=== PATIENT | male | born 1950 | race Native Hawaiian/Other Pacific Islander ===

== ENCOUNTER 2021-08-27 10:52 | Inpatient (IN) | payer OTHER ==
[~2021-08-27] VITALS: Ht 190.5 cm; Wt 106.2 kg
--- NOTE | 2021-08-27 12:08 | NUR ---
PATIENT BROUGHT VIA STRETCHER FROM [facility]. PATIENT TAKEN TO ROOM 1114. PATIENT INSTRUCTED TO GET FROM THE STRETCHER TO THE BED. PATIENT WAS ABLE TO SCOOT OVER ONTO THE BED AND USE HIS UPPER EXTREMITIES AND RIGHT LEG TO LIFT UP IN THE BED. UPPER GUARD RAILS USED TO MOVE UP IN THE BED. PATIENT ASSESSED AND NO VISIBLE SORES OR WOUNDS NOTED ON HIS BOTTOM. CRE COLLETED AT THIS TIME. ADMISSION ASSESSMENT WAS COMPLETED. PATIENT IS AOX3 AND IS PLEASENT. PATIENT IS ABLE TO MAKE ALL NEEDS KNOWN. PATIENT IS NOTED WITH AN EYAD WRAP TO LEFT BKA. EYAD REMOVED AND NOTED WAS JOVANNI AND 4X4 WITH SEROSANGUINOUS FLUID NOTED. 4X4 REMOVED CAREFULLY WITH PATIENT TOLERATING WELL. PATIENT HAS 26 NATALIYA THAT ARE INTACT INCLUDING 9 SUTURES WELL. WOUND IS INTACT. AREA REWRAPPED WITH 4X4'S AND KNLIND AND THEN SECURED WITH EYAD. PATIENT TOLERATED WELL. PATIENT ORENTED TO ROOM AND CALL LIGHTS.
[2021-08-27 17:30] VITALS: BP 122/52; TEMP 98.2; Ht 190.5 cm; Wt 106.2 kg
[2021-08-27 20:52] VITALS: BP 132/55; TEMP 97.6
--- NOTE | 2021-08-28 01:38 | NUR ---
PT IS RESTING WITH EYES CLOSED. PT WITH BKA TO HIS LEFT LOWER EXT.
--- NOTE | 2021-08-28 05:41 | NUR ---
[facility] Bed patient nad is 6'3" with a left BKA and is on a 2 gm Na diet plan and is a 71yoM and has diagnosis of weakness, Fe deficiency anemia, HTN, neuropathy, osteomyelitis, non-healing plantar ulcer, and at [facility] had severe sepsis secondary to UTI and diarrhea and left foot infection that resulted in a left BKA. OT and PT working closely with the patient per MD Notes. AIBW = 184 +/-10% (166 to 202 lbs.) and kcal needs for IBW x 25 = 2100, x 30 = 2500, x 35 = 3000, and x 40 = 3300 kcal/day and protein needs x 1.0 to 1.5 = 71 to 134 grams per dya and needs the upper protein level to help with wound healing and fluids x 25 to 40 = 2100 to 3300 ml/cc per day. 154% of IBW. RD available as needed. RD Recommendations: 1-Monitor Labs 2-Make sure hydrated 3-Add Vitamin C 500 gm BID 4-Add ZNSO4 220 mg per dya and d/c in 14 days 5-Add Protein 6-[place] food preferences and so note on the diet card 7-May want to add FESO4 or foods high in Fe 8-If eating <75% of meals off a supplement 9-Add a MVI
--- NOTE | 2021-08-28 13:00 | NUR ---
PATIENT LINENS CHANGED AND PATIENT CLEANED UP FROM BOWEL MOVEMENT. PATIENT TOLERATES ROLLING FROM SIDE TO SIDE AND CAN PULL SELF UP IN BED
[2021-08-28 20:06] VITALS: BP 130/52; TEMP 97.5
--- NOTE | 2021-08-28 23:57 | NUR ---
PT IN BED RESTING QITELY EYES CLOSED RESPPIRATIONS EVEN AND UNLABORED. PT ALERT TO VERBAL STIMULATION. PT VOICES NO COMPLAINTS OF PAIN OR DISCOMFORT AT PRESENT. PT ACCEPTED HS MEDICATION WITHOUT COMPLICATION. PT HAS URINAL AT BEDSIDE. PT HAS LEFT BKA. NO S/SX OF INFECTION NOTED. +1 SWELLING NOTED IN PT LOWER EXTEMITIES. PT SKIN NOTED TO BE DRY. PSORIASIS NOTED. NO ACUTE DISTRESS NOTED CALL LIGTH WITH IN REACH
--- NOTE | 2021-08-29 01:17 | NUR ---
PT COMPLAINT OF PAIN IN LOWER EXTREMITY OF LEFT LEG. PT HAS HAD RECENT BKA IN LEFT LEG. PT VOICED PAIN 04/06. PRN MEDICATION ADMINISTED.
--- NOTE | 2021-08-29 01:47 | NUR ---
PT VOICED PRN PAIN MEDICATION "HELPED " WITH THE PAIN.
[2021-08-29 08:34] VITALS: BP 126/52; TEMP 98.5
[2021-08-29 19:52] VITALS: BP 120/57; TEMP 98.2
--- NOTE | 2021-08-30 01:35 | NUR ---
PT IN BED RESTING QUITELY. RESPIRATIN EVEN AND UNLABORED. PT ABLE TO MAKE NEEDS KNOWN. PT VOICE PAIN 8/10 IN LOWER LEFT EXTREMITY. PRN PAIN MEDICATION ADMINISTERE. PT ACCEPT HESTER MEDICATION. SWELLING NOTED IN [place]. LOWER EXT. PT EDUCATED TO USE ALL LIGHT FOR ASSISTANCE WITH TRANSFERING. PT BKA TO LEFT LEG NO S/SX IF INFECTION NOTED. NO ACUTE DISTRESS. CALL LIGHT IN REACH.
[2021-08-30 08:20] VITALS: BP 145/62; TEMP 97.6
--- NOTE | 2021-08-30 19:37 | NUR ---
ABOUT 1600, DRESSING CHANGE TO STUMP. CLEANED WITH NORMAL SALINE, COVERED WITH 4X4, WRAPPED IN JOVANNI AND EYAD BANDAGE. 20G PERIPHERAL IV INITIATED TO LEFT WRIST ATTEMPT X1. PATIENT TOLERATED WELL. PATIENT SL.
[2021-08-30 20:00] VITALS: BP 131/59; TEMP 98
[2021-08-31 05:55] LABS: POTASSIUM 5.9 mmol/L (3.6-5.2)
--- NOTE | 2021-08-31 06:53 | NUR ---
PT ALERT RESTING IN BED AT THIS TIME. RESTED MOST OF THE NIGHT. PRN PAIN MED GIVEN WITH RELIEF NOTED. NO S/S OF DISTRESS.
[2021-08-31 08:00] VITALS: BP 123/52; TEMP 98.4
--- NOTE | 2021-08-31 13:49 | NUR ---
PT LAYING LOW FOWLERS IN BED. REQUESTED PAIN MED BEFORE PHYSICAL THERAPY, ADJUSTMENTS MADE. LEFT BKA BANDAGE INTACT AND DRY. EDEMA NOTED TO RIGHT LE. PO LASIX ON HOLD AND ORDER FOR LASIX 40 MG IV ADMINISTERED. NAD NOTED. ALERT AND ORIENTED. EDEMA NOTED TO SCROTUM. VOIDS IN URINAL WITH NO ASSISTANCE. ONE PERSON ASSIST WITH CHANGING OR CLEANING PT AFTER BOWEL MOVEMENT. PT ABLE TO TURN HIMSELF. ALERT AND ORIENTED. ABLE TO FEED HIMSELF AND COMPLETE SIMPLE TASK ON HIS OWN. CONTINUE TO MONITOR.
--- NOTE | 2021-08-31 15:55 | NUR ---
PER HCP(GURPREET) INSERT ZIMMERMAN CATHETER R/T PT THIRD SPACING. SCROTUM SWOLLEN. INSERTED 16 CITIZEN OF [place] CATHETER. LESS THAN 50ML/URINE R/T UPON INSERTION. PT TOLERATED WELL. PARTICIPATED WITH PT/OT TODAY. RODE BICYCLE AND WAS ABLE TO STAND UP ON THE SIDE OF BED USING WALKER FOR A FEW MINUTES TODAY. PAIN MED ADMINISTERED PRIOR TO PT/OT. NAD NOTED. CONTINUE TO MONITOR.
--- NOTE | 2021-08-31 18:15 | NUR ---
AT BEDSIDE. BROUGHT PT FOOD FROM OUTSIDE OF FACILITY. DENIES ANY PAIN/DISCOMFORT. NAD NOTED. ZIMMERMAN INTACT AND PT DENIES ANY DISCOMFORT. NATALIYA AND SUTURES INTACT TO LEFT BKA, DRESSING INTACT AND DRY, NO DRAINAGE NOTED TO SITE. IV SITE TO LFA INTACT AND SALINE LOCK, WITH NO S/S OF INFILTRATION NOTED. ENCOURAGED PT TO USE BEDPAN WHEN NEEDED FOR BM. PT STATED "WHEN I USE THAT,IT SEEMS LIKE I LOSE THE URGE TO HAVE A BM." HAS HAD BM X2, LOOSE, ANNA COLORED STOOLS. CONTINUE TO MONITOR.
[2021-08-31 20:00] VITALS: BP 102/50; TEMP 98.1
--- NOTE | 2021-08-31 20:58 | NUR ---
PT AWAKE, ALERT, AND ORIENTED SITTING UP IN BED WITH NO ACUTE DISTRESS NOTED, TALKATIVE WITH STAFF ALONG WITH WHO IS AT BEDSIDE. RESP RATE NONLABORED, ON ROOM AIR, IV LOCK 20G INTACT TO L WRIST AREA, ZIMMERMAN 16F PATENT DRAINING TO BEDSIDE WITH LIGHT YELLOW URINE NOTED IN BAG, R FOOT AND L BKA ELEVATED ON PILLOWS. SEE SHIFT ASSESSMENT FOR MORE INFO. PT TOOK MEDICATIONS WHOLE, HELD MED CUP AND DRIP PER SELF WITH NO PROBLEMS. WILL PULL SELF UP IN BED, WILL MONITOR, RAILS UP, BED IN LOW POSITION, CALL LIGHT IN REACH, ENCOURAGED TO CALL NEEDED.
--- NOTE | 2021-08-31 23:20 | NUR ---
PT AWAKE WITH NO ACUTE DISTRESS NOTED. C/O "DULL" PAIN TO L BKA THAT IS A "5 OR 6" ON SCALE, GAVE NORCO 5/325MG PO PRN FOR PAIN, WILL MONITOR CLOSELY, BROUGHT PT JUICE TO DRINK AND SOME CRACKERS PER REQUEST. PT DID NOT NEED HELP WITH HIS SNACK ONLY SLIGHT SET UP HELP WITH OPENING JUICE. RAILS UP, BED IN LOW POSITION, CALL LIGHT IN REACH, ENCOURAGED TO CALL NEEDED.
--- NOTE | 2021-08-31 23:55 | NUR ---
PT STATES HIS PAIN HAS STARTED TO DECREASE SOME SINCE ADX OF PRN MEDICATIONBUT HE STILL HAS SMALL AMOUNT OF PAIN. NO REACTIONS NOTED TO PRN MEDICATION. PT WATCHING TV, WILL MONITOR, RAILS UP, BED IN LOW POSITION, CALL LIGHT IN REACH, ENCOURAGED TO CALL NEEDED. L BKA AND R FOOT ELEVATED.
--- NOTE | 2021-09-01 03:08 | NUR ---
PT AWAKE, ALERT, AND ORIENTED SITTING UP IN BED. NO S/S OF ACUTE DISTRESS NOTED, R LEG/FOOT ELEVATED ON PILLOW DUE TO PITTING EDEMA STILL NOTED, L BKA(STUMP) ELEVATED ON FOLDED BLANKET. IV LOCK INTACT. C/O "SHOOTING" PAIN TO L MARLENA THAT HE STATES WOKE HIM UP, RATES PAIN A "7" ON SCALE OF O-10. GAVE NORCO 5/325MG PO PRN FOR PAIN. WILL MONITOR CLOSELY, RAILS UP X3, BED IN LOW POSTIION, CALL LIGHT IN REACH, ENCOURAGED TO CALL NEEDED, PT ACKNOWLEDGES UNDERSTANDING. ZIMMERMAN CATH PATENT DRAINING TO BEDSIDE.
--- NOTE | 2021-09-01 03:45 | NUR ---
RESTING WITH EYES CLOSED AND LIGHT SNORING NOTED, NO S/S OF PAIN OR DISTRESS NOTED, NO REACTIONS NOTED TO PRN PAIN MEDICATION, WILL MONITOR, IV LOCK INTACT TO L WRIST AREA, ZIMMERMAN PATENT DRAINING TO BEDSIDE, RAILS UP, BED IN LOW POSITION. R FOOT AND L BKA ELEVATED ON PILLOWS.
[2021-09-01 06:08] LABS: POTASSIUM 6.1 mmol/L (3.6-5.2)
--- NOTE | 2021-09-01 07:12 | NUR ---
PT C/O PAIN THAT COMES AND GOES TO L BKA, GAVE NORCO 5/325MG PO PRN PER PT REQUEST FOR PAIN. NO ACUTE DISTRESS NOTED, PT TALKATIVE WITH STAFF, IV LOCK INTACT, ZIMMERMAN PATENT, WILL MONITOR CLOSELY, RAILS UP, BED IN LOW POSITION, ENCOURAGED TO CALL NEEDED PT ACKNOWLEDGES UNDERSTANDING.
--- NOTE | 2021-09-01 07:13 | NUR ---
PT RATED PAIN TO L BKA A "7" AND STATES PAIN IS "PRETTY SHARP".
--- NOTE | 2021-09-01 07:30 | NUR ---
POTASSIUM LEVEL 6.1 TODAY AND WAS 5.9 YESTERDAY. REPORTED LABS TO DR. BANERJEE. NEW TELEPHONE ORDER FOR KAYEXALATE 30 GRAMS PO X 1 DOSE NOW R&V.
[2021-09-01 15:58] LABS: POTASSIUM 6.3 mmol/L (3.6-5.2)
[2021-09-01 20:00] VITALS: BP 104/51; TEMP 97.4
--- NOTE | 2021-09-01 20:26 | NUR ---
FULL LINEN CHANGE DONE AT THIS TIME. PT ALSO SPILT APPLE JUICE ON SHIRT AND ON LINENS. GOT PT CLEANED UP. PM MED GIVEN AT THIS TIME . PT TOLERATED WELL. DRESSING INTACT TO L BKA. PT DOES NOT COMPLAIN OF PAIN AT THIS TIME. PT WAS THANKFUL WE CHANGED LINENS AND GAVE PT A NEW CLEAN GOWN. PT ABLE TO HELP AND ASSIST IN TRANSFERRING AND MANEUAVERING FROM SIDE TO SIDE FOR LINEN CHANGE. PT PLACED IN A LOW FOWLERS POSITION AFTER BED CHANGE WITH SIDE RAILS UP TIMES TWO WITH BED IN LOWEST POSITION ORIENTED TO CALL LIGHT.
[2021-09-02 05:22] LABS: POTASSIUM 6.3 mmol/L (3.6-5.2)
--- NOTE | 2021-09-02 06:46 | NUR ---
ER PHYSICIAN NOTIFIED OF POTASSIUM LEVEL OF 6.3- DOCTOR ORDERED A EKG AND A REPEAT K LEVEL. NO OTHER ORDERS GIVEN AT THIS TIME EKG RESULTS PROVIDED TO PHYSICIAN- NO NEW ORDERS- WAITING ON POTASSIUM LEVEL TO COME BACK PER DOCTORS ORDER
[2021-09-02 08:00] VITALS: BP 100/60; TEMP 97.9
--- NOTE | 2021-09-02 17:32 | NUR ---
LISIONOPRIL D/C'D PER DR. ULRICH. DUE TO MEDICATION POSSIBLY INCRESING PT'S K+ AND PT HAVING LOW BP.
[2021-09-02 20:00] VITALS: BP 77/39; TEMP 97.3
--- NOTE | 2021-09-02 20:59 | NUR ---
PT IS LAYING IN LOW FOWLERS POSITION IN THE BED. PT STATES THAT HE HAS PAIN IN THE STUMP OF HIS LEG THAT HE RATES AT AN 8 ON A NUMERIC SCALE OF 0-10. PT WAS GIVEN HIS NIGHTLY DOSE OF GABAPENTIN. PT TOOK HIS NIGHTLY MEDICATIONS WITHOUT ANY DIFFICULTY AND DENIES ANY OTHER NEEDS. NO DISTRESS IS NOTED AT THIS TIME. CALL LIGHT IS LEFT WITHIN REACH ALONG WITH OTHER PERSONAL BELONGINGS. WILL CONTINE TO MONITOR.
[2021-09-03 04:51] LABS: POTASSIUM 5.6 mmol/L (3.6-5.2)
--- NOTE | 2021-09-03 04:52 | NUR ---
Swing Bed patient and I went by to visit and he was asleep, RD available as needed.
--- NOTE | 2021-09-03 06:27 | NUR ---
PT IS ASLEEP AND SNORING. ALL OF THE LIGHTS ARE OUT IN THE ROOM. SMALL ORDER CUTTER WILL LEAVE PT TO LET HIM REST.
[2021-09-03 08:00] VITALS: BP 124/58; TEMP 98.7
--- NOTE | 2021-09-03 08:14 | NUR ---
PT LAYING IN BED RESTING WITH EYES CLOSED. EASILY AWAKENED BY SPEAKING TO PT. HE DENIES PAIN OR DISCOMFORT. STATES HE RESTED WELL LAST NIGHT. PT DID REQUEST HIS PAIN MEDICATION TO BE GIVEN WITH HIS MORNING MEDICATIONS. WILL CONTINUE TO MONITOR.
--- NOTE | 2021-09-03 09:01 | NUR ---
STARTED NORMAL SALINE IV @75ML/HR.
[2021-09-03] MEDS ORDERED: FUROSEMIDE40 MG PO (13:33)
[2021-09-03] MEDS ORDERED: LISINOPRIL PO (13:35)
[2021-09-03] MEDS ORDERED: METOPROLOL25 M1 PO (13:38)
[2021-09-03] MEDS ORDERED: HYDROCODONE BIT1 TA1 PO (13:39)
[2021-09-03] MEDS ORDERED: SPIRONOLACT50 MG PO (13:39)
[2021-09-03] MEDS ORDERED: NIFE30TA PO (13:41)
[2021-09-03] MEDS ORDERED: CHLORTHALID50 MG PO (13:42)
[2021-09-03] MEDS ORDERED: DOCU100C10 PO (13:42)
[2021-09-03] MEDS ORDERED: ASPIR-LOW81 MG PO (13:43)
[2021-09-03] MEDS ORDERED: GABA100C2 PO (13:44)
--- NOTE | 2021-09-03 14:42 | NUR ---
PT PARTICIPATING IN PHYSICAL THERAPY.
--- NOTE | 2021-09-03 16:05 | NUR ---
PT LAYING BED EATING SOME BRAN CRACKERS AND REQUESTED APPLE JUICE. APPLE JUICE BROUGHT TO PATIENT AND PLACED IN HIS BEDSIDE CUP PER PT REQUEST.
[2021-09-03 16:10] LABS: PLATELET COUNT 191 K/uL (142-355)
--- NOTE | 2021-09-03 16:59 | NUR ---
NEW ORDER FOR KYEXALATE FOR PT'D ELEVATED K+. PT TOOK MEDICAITONS AND TOLERATED WELL.
--- NOTE | 2021-09-03 17:38 | NUR ---
PT C/O PAIN IN HIS LEGS. PRN NORCO GIVEN. NO OTHER C/O VOICED. PT ENCOURGAED TO USE CALL LIGHT IF HE HAS ANY NEEDS. CALL LIGHT IS WITH IN REACH.
[2021-09-04 05:04] LABS: POTASSIUM 5.2 mmol/L (3.6-5.2)
--- NOTE | 2021-09-04 05:36 | NUR ---
PT IN BED RESTING QUITELY. PT VOICED BEING SOB AFTER REPOSITION AND SETTING UP IN THE BED. PT DENIES PAIN AT PRESENT. PT ACCEPTED HS MEDICATION WITHOUT COMPLICATION. PT REQUESTED PAIN MEDICATION THORUGHT THE SHIFT. SWELLING NOTED IN LOWER EXTRIMITES. PT RESPIRATION EVEN AND UNLABORED. PT LUNGS CTA. NO ACUTE DISTRESS NOTED
[2021-09-04 07:58] VITALS: BP 107/55; TEMP 97.7
[2021-09-04 20:00] VITALS: BP 110/50; TEMP 98.7
--- NOTE | 2021-09-04 22:59 | NUR ---
PT IN BED AWAKE AND ALERT WITH EYES OPEN. PT ABLE TO MAKE NEEDS KNOWN. PATIENT VOICE COMPLAINTS OF PAIN RELATED TO LT. BKA. PRN PAIN MEDICATION ADMINISTERED. PT RESIPRATION EVEN AND UNLABORED. PT HAS SWELLING NOTE TO LOWER TORSO BILATERALY. 16FR ZIMMERMNA INTACT AND PATENT. CLEAR ABILIO URINE NOTED IN COLLECTION BAG. PT INCONTENT OF BOWEL AND BLADDER. REQUIRES ASSISTANCE WITH TRANSTERING AND ADLS. NO ACUTE DISTRESS NOTED.
--- NOTE | 2021-09-05 09:15 | NUR ---
IN TO GIVE PT AM MEDS. PT GIVEN PRN PAIN MED FOR PAIN WITH LLE. PT RATES PAIN 04/06. DISCUSSED WITH PT HIS SWELLING AND WHAT HAD BEEN DISCUSSED WITH HIM PREVIOUSLY. PT STATES "WELL ONE NURSE MENTIONED I MIGHT NEED DIALYSIS AND I DON'T WANT TO DO THAT FOR THE REST OF MY LIFE" EDUCATED PT THAT DIALYSIS IS NOT ALWAYS PERMANENT. PT REQUESTS TO SPEAK WITH DR. BANERJEE TO GET A BETTER UNDERSTANDING AND KNOW WHAT HER PLANS ARE. NOTIFIED.
--- NOTE | 2021-09-05 13:00 | NUR ---
SPOKE WITH PT'S . UPDATE GIVEN.
--- NOTE | 2021-09-05 15:30 | NUR ---
DR. BANERJEE AT BS
--- NOTE | 2021-09-05 16:09 | NUR ---
DRESSING TO LT STUMP CHANGED AT THIS TIME. NO REDNESS OR SWELLING NOTED. PT TOLERATED WELL WITHOUT DIFFICULTY.
[2021-09-05 20:00] VITALS: BP 113/61; TEMP 97.8
--- NOTE | 2021-09-05 22:17 | NUR ---
1950: PT REQUESTED PAIN MED. NORCO 7.5/325MG GIVEN PO. PT ALSO REQUESTED GATORAIDE. PT HAS DRESSING INTACT TO LEFT STUMP WITH EDEMA NOTED TO THIGH. PT HAS EDEMA TO RIGHT LEG AND FOOT, AND TO BOTH SIDES OF TRUNK. ABD DISTENDED AND FIRM. PT ALSO ASKED WHEN WAS THE NEXT TIME HE COULD GET ANOTHER PAIN PILL.INSTRUCTED PT THAT HE WOULD HAVE TO ASK FOR IT.
--- NOTE | 2021-09-06 02:09 | NUR ---
0054: PT REQUESTED PAIN MED FOR LEVEL8 PAIN IN LEFT STUMP. NORCO 7.5/325MG GIVEN PO. PT REQUESTED 3 APPLE JUICES ALSO.
--- NOTE | 2021-09-06 02:12 | NUR ---
0130: PT STATED PAIN WAS NOW AT LEVEL 6. INSTUCTED PT THAT PILLS TAKE LONGER TO DISSOLVE BUT LAST LONGER. PT VERBALIZES UNDERSTANDING.
--- NOTE | 2021-09-06 05:03 | NUR ---
PT REQUESTED PAIN MED FOR LEFT STUMP PAIN. PAIN LEVEL IS A 7 ON PAIN SCALE. NORCO 7.5/325MG GIVEN PO.
[2021-09-06 08:00] VITALS: BP 126/54; TEMP 98
--- NOTE | 2021-09-06 09:00 | NUR ---
PATIENT HAS COMPLAINTS OF PAIN AT THIS TIME. PRN PAIN MED GIVEN AT THIS TIME. PT FREE OF OTHER COMPLAINTS AT THIS TIME.
--- NOTE | 2021-09-06 11:30 | NUR ---
PATIENT REQUESTING TO GO BACK TO BED. THERAPY CALLED AND ASSIST X3 BACK TO BED. PATIENT DID NOT WANT TO USE WALKER. LIFT USED TO TRANSFER PATIENT BACK TO BED.
--- NOTE | 2021-09-06 14:52 | NUR ---
Patient has a follow up appointment with Dr. Tello Meehan orthopedic surgeon [phone] on 09/08/21 @10:45am. His Fatuma will take him to the appointment. He will need therapy to assist him with transfer. Per Lali at Dr. Meehan's office they have someone who can assist him on their end in getting in and out of the vehicle. Therapy in the room and aware they need to assist patient with transfer.
--- NOTE | 2021-09-06 16:10 | NUR ---
PATIENT MOVED FROM RM 1114 TO 1103 PER RK.
[2021-09-06 19:50] VITALS: BP 92/45; TEMP 97.4
--- NOTE | 2021-09-07 00:46 | NUR ---
PT STATES THAT HE HAS BEEN DREAMING. STATES THAT HIS DREAMS FEEL REAL. ORIENTED PT THAT HE WAS IN [facility] FOR THERAPY.
--- NOTE | 2021-09-07 03:40 | NUR ---
ROUND MADE OFTEN. PT IS LESS CONFUSED PRESENTLY. PT STATED THAT HE THOUGHT IT WAS THE MEDICATION AND THE CHANGE OF ROOMS. INSTRUCTED PT TO CALL FOR ANY ASSISTANCE. PT VOICED UNDERSTANDIN OF THESE INSTRUCTIONS.
--- NOTE | 2021-09-07 07:30 | NUR ---
PT REPORTED SEEING THINGS THAT WAS NOT THERE. HE STATES THAT "I KNOW ITS GOT TO BE A DREAM." HE DISPLAYS INCREASED CONFUSION WHEN TRYING TO TALK IN A CONVERSATION.
--- NOTE | 2021-09-07 11:08 | NUR ---
THERAPY REPORTS PT HAVING HALLUCINATIONS. THERAPY STATES THAT PT SAYS THAT HIS BED IS FLOATING IN THE AIR BUT HE KNOWS ITS NOT FLOATING IN THE AIR. HE ALSO REPORTED TO THERAPY THAT THERE WAS SOMEONE IN HIS CLOSET BUT HE KNOWS THAT THERE IS NO ONE IN THER BUT HE SEEN THEM GO IN THE CLOSET. HE ALSO TOLD THERAPT THAT HE DID NOT WANT TO DO THERAPY TODAY BECAUSE SOMETHING ISN'T RIGHT.
--- NOTE | 2021-09-07 13:30 | NUR ---
PT IN CHAIR AT BEDSIDE. HE IS NOTIBLY LESS CONFUSED THAN PRIOR ASSESSMENT.
--- NOTE | 2021-09-07 14:45 | NUR ---
NEW DRY NON STICK DRESSING APPLIED TO PTS LEFT EXTREMITY SURGICAL WOUND. AREA HAS NO EDEMA, NO EYRTHEMA, AND HAD NO DRAINAGE. SUTURES AND NATALIYA ARE INTACH. PT TOLERATED DRESSING CHANGE WITH NO PAIN IR COMPLAINTS OF DISCOMFORT.
[2021-09-07 20:03] VITALS: BP 107/48; TEMP 97.7
--- NOTE | 2021-09-08 06:09 | NUR ---
PATIENT HAS RESTED THIS PM. PT HAS BEEN ALERT AND ORIENTED THIS SHIFT. PT HAS REQUIRED NO PAIN MEDICATION THIS SHIFT. BEDSIDE TABLE IN EASY REACH. PT WAS SERVED [facility] . PT HAS APPOINTMENT WITH DR. DOW. TRANSPORTATION HAS BEEN ARRANGED.
--- NOTE | 2021-09-08 06:15 | NUR ---
PT HAS RESTED THIS PM WITH NO COMPLAINTS VOICED.
--- NOTE | 2021-09-08 07:40 | NUR ---
PT CALLS TO NURSES STATION TO REPORT HIS PHONE NOT WORKING. INTO CHECK ON PT. CHECKED PT'S PHONE IT'S NOT WORKING. NOTIFIED IT. INFORMED PT WHILE HE IS GONE TO HIS DR. COREY. WE WILL HAVE HIS PHONE CHECKED OUT. PT VERBALIZES UNDERSTANDING. PT REQUESTED WE CALL HIS AND LET HER KNOW TO COME ON. SPOKE WITH PT'S AND INFORMED HER THAT PT WOULD LIKE FOR HER TO COME ON NOW, MRS. MCPHERSON STATES "WE ARE ON OUR WAY NOW" NOTIFIED PT HIS IS ON THE WAY. PT NOTED TO BE ALERT AND ORIENTED X4.
--- NOTE | 2021-09-08 08:40 | NUR ---
IN TO ASSIST WITH GETTING PT DRESSING AND AM MEDS. PT SCROTUM AND PENIS NOTED TO BE EDEMATOUS. RLE NOTED TO HAVE 3+EDEMA. PT ALSO NOTED TO HAVE EDEMA TO BILAT HIPS AND WAIST 3+. PT WIPED OFF AND NEW CATH SECURE PLACED TO RT THIGH. 400CC CLEAR YELLOW URINE EMPTIED FROM ZIMMERMAN BAG.PT DRESSED IN CLOTHES PROVIDED BY HIS . PT TOLERATED PO MEDS WELL WITHOUT DIFFICULTY. PT NOTED TO HAVE 22G SL TO LFA. FLUSHED WITH 5CC NS, LASIX 40MG IV SLOW PUSH GIVEN, FLUSHED WITH ANOTHER 5CC NS. PT TOELRATED WELL.
--- NOTE | 2021-09-08 09:15 | NUR ---
THERAPY HERE TO ASSIST TO PT W/C FOR DR. COREY. PT TRANSFERRED X2 PERSON ASSIST WITH SLIDE BOARD WITH MINIMAL DIFFICULTY. PT ASSISTED INTO CAR X4 PERSON ASSIST WITH SOME DIFFICUTLY. PT REPORT'S PT REC'D SKIN TEAR TO LFT HAND DURING TRANSFER FROM W/C TO FRONT SEAT OF CAR. PRESSURE APPLIED AND COVERED WITH BANDAID. PT ACCOMPANIED TO DR. COREY BY HIS AND SISTER. SLIDE BOARD SENT WITH PT.
[2021-09-08 14:55] LABS: POTASSIUM 4.3 mmol/L (3.6-5.2)
--- NOTE | 2021-09-08 15:10 | NUR ---
INFORMED DR. VÁZQUEZ OF PT'S LAB RESULTS. REC'D ORDERS TO START 1200 ML FLUID RESTRICTION, MAINTAIN STRICT I'S AND O'S, WILL CONSULT NEPHROLOGY AGAIN TOMORROW 09-09-2021, CHECK ALBUMIN LEVEL.
--- NOTE | 2021-09-08 15:37 | NUR ---
PT'S FAMILY REQUESTS TO KNOW IF PT'S LIVER FUNCTION HAS BEEN CHECKED. PT REPORTS HE USED TO DRINK AND HAS HAD FLUID DRAINED FROM HIS BELLY IN THE PAST. NOTIFIED DR. VÁZQUEZ OF NEW INFORMATION. REC'D ORDERS TO OBTAIN CMP IN AM.
--- NOTE | 2021-09-08 19:50 | NUR ---
PT. RESTING QUIETLY WATCHING TV DENIES ANY COMPLAINTS AT THIS TIME. NO DISTRESS NOTED AT THIS TIME. CALL LIGHT WITHIN REACH. WILL CONTINUE TO MONITOR.
[2021-09-08 20:00] VITALS: BP 105/45; TEMP 99.2
[2021-09-09 08:00] VITALS: BP 119/53; TEMP 98.9
--- NOTE | 2021-09-09 14:03 | NUR ---
ATTEMPTED TO CALL PT'S BACK AT THIS TIME. NO ANSWER. VOICEMAIL LEFT.
--- NOTE | 2021-09-09 14:18 | NUR ---
Leaf Tinner notifed on 09/08/21 that patient had a follow up appointment with Dr. Meehan on 09/15/21 @ 1030 his Fatuma will take him to this appointment. This appointmet was discussed in rounds on 09/09/21.
[2021-09-09 20:00] VITALS: BP 113/42; TEMP 98.7
--- NOTE | 2021-09-10 01:17 | NUR ---
PT IN BED RESTING QUITELY. ACCEPTED HS MEDICATION. PT HAS SWELLING IN TORSO AND LOWER EXTREMITIES. MD NOTIFIED OF PT CONDITION. PT HAS 16 FR ZIMMERMAN INTACT. PT DENIES PAIN AT PRESENT. BODY MAN ACUTE DISTRESS NOTED.
[2021-09-10 08:00] VITALS: BP 115/49; TEMP 98.1
[2021-09-10 20:59] VITALS: BP 107/48; TEMP 99.2
--- NOTE | 2021-09-10 23:57 | NUR ---
PT IN BED RESTING QUITELY, EYES OPEN, RESPIRATIONS EVEN AND UNLABORED. PT IV INTACT AND PATENT. SCHEDULED INFUSION COMPLETE. NO ADVERSE EFFECT NOTED. PT ZIMMERMAN UNTACT AND PATENT. URINE NOTED IN COLLECTION BAG. PT VOICE NO DISTRESS AT PRESENT. PT NOTED TO HAVE SELLING IN TORSO AND LOWER EXTERMITIES RELATED TO DX. MD IS AWARE. PT CONTINUES WITH FLUID RESTICTION. PT VEBALIZED UNDERSTAND OF FLUID RESTRICTION. CALL IGHT IN REACH. NO ACUTE DISTRESS NOTED.
[2021-09-11 08:12] VITALS: BP 114/50; TEMP 97.9
[2021-09-11 20:00] VITALS: BP 109/53; TEMP 99.2
--- NOTE | 2021-09-11 21:26 | NUR ---
PT INBED ALER AND ORIENTED. PT HOB ELEVATED. PT RESPIRATIONS EVEN AND UNLABOORED AT PRESENT. PT ACCEPTED HS MEDICAATION . IV INFUSITON COMLETED. NO ADVERSE REACTION NOTED. PT DENIES PAIN AT PRESENT. PT NOTED TO HAVE SWELLING IN TORSO AND ILATERAL LOWER EXTREMITIES. PT EDUCATED ON RESTRICTED FLUID INTAKE. PT VOICES UNDERSTANDING. PT IV NTACT, NO SIGNS OF INFILTRATION NOTED. PT ZIMMERMAN INTACT, AND PATENT.URINE NOTED IN COLLECTION BAG. NO ACUTE DISTRESS NOTED. CALL LIGHT IN REACH.
--- NOTE | 2021-09-12 03:00 | NUR ---
PT IN BED RESTING QUITELY @ APPROXIMATELY 1258 PT COMPLAINED OF PAIN IN THE CHEST. RESPIRITORY AND MY NOTIFIED. MD ORDERS WERE FOLLOWED STAT EKG AND TROPONIN LEVELS. PT TOLERATED EKG AND LABS ER.. MD NOTIFIED OF BOTH REPORT FINDINGS. @0114 ER MD ON FLOOR VISITING WITH PATIENT. NEW ORDERS FOLLOWED: 1. BED REST FOR TODAY, 2. LOW DOSE HEPARIN PROTOCOL: NONSTEMI 3. 02 @ 2L VIA NC NOW 4. EKG AND TROPONIN AT 0700 TODAY O2 VIA NC APPLIED AND HEPARIN PROTOCOL STARTED. PT VOICED HE HAS BEGAN TO "FEEL BETTER THAN BEFORE." PT TO BE MONITORED. CALL LIGHT IN REACH.
[2021-09-12 20:34] VITALS: BP 110/52; TEMP 98.6
--- NOTE | 2021-09-13 04:36 | NUR ---
HEPARIN DRIP WAS NOT CHANGE IN RATE OR STOPPED. FOLLOWING HEPARIN PROTOCAL. NEXT PTT IS ORDERED FOR 845AM. 02:45AM PTT LEVEL WAS 61.8.
--- NOTE | 2021-09-13 07:39 | NUR ---
PT ON 2LPM NC WITH SPO2 AT 96%. RT DECREASED TO 1LPM. SPO2 NOW AT 94%. WILL WEAN PT TO RA TOLERATED BY PT.
[2021-09-13 09:14] VITALS: BP 104/48; TEMP 98.4
[2021-09-13 10:33] LABS: POTASSIUM 3.8 mmol/L (3.6-5.2)
--- NOTE | 2021-09-13 16:14 | NUR ---
THIS AM PT C/O VOMITING AFTER BREAKFAST, DENIED NAUSEA, STATED "IT HAPPENEDD FAST, BUT I FEEL FINE NOW." DENIED CHEST PAIN, SOB, OR OTHER C/O. DENIED NEED FOR NAUSEA MED. 1330 PT REPORTED HE ALSO VOMITIED AGAIN AFTER LUNCH, BUT DID NOT EAT LUNCH. CHEST PAIN, SOB, OR OTHER, C/O. DR. VÁZQUEZ NOTIFIED AND PRN NAUSEA MED ORDER RECEIVED. 1430 PT GIVEN ZOFRAN 4MG SLOW IVP AFTER PT VOMITIED A SMALL AMOUNT OF LIGHT BROWN CLEAR FLUID. HE CONTINUES TO DENY CHEST PAIN, SOB, OR OTHER C/O. DR. VÁZQUEZ NOTIFIED AND NEW ORDERS RECEIVED FOR STAT EKG AND LABS.
--- NOTE | 2021-09-13 18:06 | NUR ---
AT 1530 PT DENIED ANY FURTHER VOMITING, PRESENT AT BEDSIDE. PT WAS ASSISTED BACK TO BED BY THERAPY, UNABLE TO COMPLETE PHYSICAL THERAPY TODAY. INSTRUCTED TO LIMIT TO CLEAR LIQUIDS AT THIS TIME, BOTH VERBALIZED UNDERSTANDING. NO OTHER NEEDS VOICED AT HTIS TIME.
--- NOTE | 2021-09-13 18:53 | NUR ---
@ 1825 PT HAD A LARGE LOOSE-SOFT INCONTINENT BM. PT CLEANED AND NEW BRIEF APPLIED, CLEAN LINENS AND LINEN SAVERS APPLIED TO BED. PT TOLERATED WELL AND STATED "MY STOMACH FEELS MUCH BETTER NOW", DENIED FURTHER NEEDS, PRESET AT BEDSIDE.
[2021-09-13 20:00] VITALS: BP 116/53; TEMP 99
[2021-09-14 03:22] LABS: POTASSIUM 3.8 mmol/L (3.6-5.2)
[2021-09-14 20:00] VITALS: BP 118/52; TEMP 100
[2021-09-15 06:15] LABS: POTASSIUM 3.5 mmol/L (3.6-5.2)
--- NOTE | 2021-09-15 06:34 | NUR ---
PT RESTED WELL THIS PM. PATIENT HAS BEEN FREE FROM COMPLICATIONS OR COMPLAINTS.
--- NOTE | 2021-09-15 08:16 | NUR ---
PT ALERT AND AWAKE LYING HIGH FOWLERS IN BED. PT HAS HAD BED BATH, AM MEDS ADMINISTERED ORDERED. TOLERATED WELL WITH NO DIFFICULTY SWALLOWING. ALBUMIN IV INFUSING ORDERED. IV SITES TO LFA AND RIGHT HAND INTACT WITH NO SWELLING OR REDNESS NOTED TO SITE. DENIES PAIN/DISCOMFORT. WRAPPED LBKA WITH EYAD BANDAGE. NO DRAINAGE NOTED TO SITE. SUTURES/NATALIYA INTACT. NO C/O N/V. PT DRESSED AWAITING TO BRING A CLEAN SHIRT. PT HAS F/U APPOINTMENT TO HAVE SUTURES/NATALIYA REMOVED AT 1030, WILL P/U PT AT 0900. CONTINUE TO MONITOR.
--- NOTE | 2021-09-15 11:15 | NUR ---
PT LEFT AT 0930 FOR F/U APPOINTMENT WITH HCP TO HAVE SUTURES AND NATALIYA REMOVED FROM LEFT BKA. ARRIVED TO TRANSPORT PT TO APPOINTMENT. PER PHYSICAL THERAPY PT TRANSFERED WELL FROM WHEELCHAIR TO CAR.
--- NOTE | 2021-09-15 18:21 | NUR ---
PT UP IN WHEELCHAIR UNTIL AFTER DINNER. ASSISTED PT FROM WHEELCHAIR TO BED USING SLIDING BOARD. PT ABLE TO TRANSFER WITH ONE PERSON ASSIST AND KNOWS HOW TO USE SLIDING BOARD TO TRANSFER TO BED. NAD NOTED. NO C/O PAIN/DISCOMFORT THIS SHIFT. POSITIVE ATTITUDE. POOR APPETITE, ONLY ATE 10% OF DINNER MEAL. PT STATED THAT PRIOR TO GOING TO HIS APPOINTMENT IN THE AM HIS STOPPED AND HE ATE BREAKFAST AND HE ATE 90% OF MEAL. ABILITY TO USE BEDRAILS AND PULL HIMSELF UP IN THE BED. CONTINUE TO MONITOR.
[2021-09-15 20:37] VITALS: BP 115/47; TEMP 99
--- NOTE | 2021-09-15 23:10 | NUR ---
2029: PT AWAKE ALERT, NO COMPLAINTS. PT TOOK PM MEDS AND IV INFUSION. PT THEN ASKS FOR HIS PAIN MED STATING "IT HELPS ME TO REST." 2053: NORCO 1 TAB GIVEN PO FOR LEVEL 5 DISCOMFORT IN LEFT STUMP.
[2021-09-16 04:52] LABS: POTASSIUM 3.5 mmol/L (3.6-5.2)
--- NOTE | 2021-09-16 07:50 | NUR ---
PT ABLE TO SIT ON EDGE OF BED W/O ASSIST. PT UP TO EAT BREAKFAST.
[2021-09-16 08:00] VITALS: BP 114/52; TEMP 98
--- NOTE | 2021-09-16 09:17 | NUR ---
THERAPY IN TO SEE PT
--- NOTE | 2021-09-16 12:00 | NUR ---
PT ABLE TO TRANSFER FROM CHAIR TO CHAIR. PTS HAIR WASHED. BED LINEN CHANGED. PT TRANSFERRED BACK INTO BED, W/C AND SLIDE BOARD PLACED BY NURSE, PT ABLE TO TRANSFER.
[2021-09-16 20:19] VITALS: BP 131/57; TEMP 98.5
[2021-09-17 04:36] LABS: POTASSIUM 3.8 mmol/L (3.6-5.2)
--- NOTE | 2021-09-17 09:00 | NUR ---
PT LAYING IN BED IN LF. PT DENIES ANY NEEDS AT THIS TIME.
--- NOTE | 2021-09-17 10:30 | NUR ---
PT REQUESTS TO GET UP IN CHAIR AT BEDSIDE. PT ASSISTED X1 PERSON EXTENSIVE ASSISTANCE BY MINO, PT WITH GAIT BELT AND WALKER. PT AMBULATED TO CHAIR AT BEDSIDE. CALL LIGHT WITHIN REACH. PT DENIES ANY OTHER NEEDS AT THIS TIME.
--- NOTE | 2021-09-17 15:40 | NUR ---
PT AMBULATED WITH WALKER X1 PERSON ASSIST FROM BED TO DOOR AND BACK. PT RESTED X2 DURING AMBULATION. MINO, PT ASSISTED PT WITH AMBULATION AND APPRENTICE PAINTER NECKTIES FOLLOWED BEHIND WITH WHEELCHAIR. PT UNABLE TO USE ROLLING WALKER DUE TO BECOMING OFF BALANCED PER PT.
--- NOTE | 2021-09-17 22:27 | NUR ---
PT ALERT RESTING IN BED WATCHING TV. PRN PAIN MED GIVEN PER REQUEST STATES "IT HELPS ME REST". NO S/S OF DISTRESS AT THIS TIME.
[2021-09-18 05:02] LABS: POTASSIUM 3.6 mmol/L (3.6-5.2)
--- NOTE | 2021-09-18 08:22 | NUR ---
PCP meeting yesterday and patient stated he does no want any more powdered eggs and [facility] does not serve powdered eggs. no chicken d/t dry, likes salads with 2 boiled eggs, pickled beets, tuna salad, oil and vinegar, no melon, no grapes and wants berries with all meals, will try celery and try a smoothie and is on IV albumin d/t labs and per Erin had a heart atack and is on a renal diet with 59195 ml fluid restriction and had a BKA. RD communicated all to the FSD and she will make the changes, RD available as neded.
[2021-09-18 09:40] VITALS: BP 126/55; BP 139/65; TEMP 97.8
[2021-09-18 20:00] VITALS: BP 121/54; TEMP 98
--- NOTE | 2021-09-19 03:30 | NUR ---
PATIENT RESTING QUIETLY WITH EYES CLOSED, NO ACUTE DISTRESS NOTED AT THIS TIME. CALL LIGHT WITHIN REACH. WILL CONTINUE TO MONITOR.
[2021-09-19 05:29] LABS: POTASSIUM 3.4 mmol/L (3.6-5.2)
[2021-09-19 20:00] VITALS: BP 122/56; TEMP 98.6
--- NOTE | 2021-09-20 05:54 | NUR ---
PT HAS RESTED WELL THIS SHIFT. NO VOICED COMPLAINTS.
[2021-09-20 06:08] LABS: POTASSIUM 3.6 mmol/L (3.6-5.2)
--- NOTE | 2021-09-20 10:59 | NUR ---
09/20/21 6703 PHYSICAL THERAPY ASSISTED PT TO OUT OF BED WITH WALKER AND TO BEDSIDE COMMODE TOLERATED WELL.CC
--- NOTE | 2021-09-20 11:45 | NUR ---
09/20/21 PT SITTING UP IN CHAIR PHYSICAL THERAPY PRESENT IN ROOM.NO C/O VOICED.CALL LIGHT WITHIN REACH.CC
--- NOTE | 2021-09-20 17:22 | NUR ---
09/20/21 BLADDER EDUCATION EXPLAINED AND IN PROGRESS.EXPLAINED TO PT TO CALL IF HE HAS THE URGE TO VOID.PT VERBALIZED UNDERSTANDING.CALL LIGHT WITHIN REACH.CC
--- NOTE | 2021-09-20 18:33 | NUR ---
09/20/211834 ZIMMERMAN CATHETER UNCLAMPED PT STATES HE DOESNOT FEEL URGE TO VOID.WILL UNCLAMP TO DRAIN AND RECLAMP.CC
--- NOTE | 2021-09-20 18:54 | NUR ---
09/20/21 1855 ZIMMERMAN CATHETER RECLAMPED FOR BLADDER TRAINING.CC
[2021-09-20 20:41] VITALS: BP 114/50; TEMP 98.9
--- NOTE | 2021-09-21 01:28 | NUR ---
PT IN BED RESTING QUITELY. PT HAS EYES CLOSED. RESPIRATIONS EVEN AND UNLABORED. PT ABLE TO MAKE NEEDS KNOWN. PT VOICE NO COMPLAINTS AT PRESENT. PT ACCEPTED HS MEDICATION WITHOUT COMPLICATION. PT HAS EYAD WRAP TO LEFT BKA. NO S/SX OF INFECTION NOTED AT PRESENT.PT REQUIRES ASSISTANCE WITH ADLS. PT 16FR RWANDAN FOLY INTACT AND PATENT. URINE NOTED IN COLLECTION BAG. PT REQUESTED PRN PAIN MEDICATION TO "HELP ME SLEEP" DURING HS MEDIACTION ADMINISTRATION. NO ACUTE DDISTRESS NNOTED.
[2021-09-21 08:34] VITALS: BP 120/55; TEMP 98
--- NOTE | 2021-09-21 08:59 | NUR ---
09/21/21 0900 ZIMMERMAN CATHETER CLAMPED FOR BLADDER TRAINING.CC
--- NOTE | 2021-09-21 10:31 | NUR ---
09/21/21 PT ZIMMERMAN UNCLAMPED PER PHYSICAL THERAPY THIS AM.RECLAMPED ZIMMERMAN CATHETER AT THIS TIME FOR BLADDER TRAINING.CALL LIGHT WITHIN REACH.CC
--- NOTE | 2021-09-21 15:11 | NUR ---
09/21/21 1500 BATH AND LINEN CHANGED.REMOVED ZIMMERMAN CATHETER WITH 400ML YELLOW URINE OUT.URINAL PRESENT AT BEDSIDE.CCCALL LIGHT WITHIN REACH.CC
--- NOTE | 2021-09-21 17:07 | NUR ---
09/21/21 1700 PT LINEN CHANGE URINAL USED VOIDED 200ML URINE.CALL LIGHT WITHIN REACH.CC
[2021-09-21 20:14] VITALS: BP 111/51; TEMP 99
--- NOTE | 2021-09-22 05:08 | NUR ---
PT IN BED RESTING QUITELY WWITH EYES CLOSED. RESPIRATIONS EVEN AND UNLABORED. PT AB LE TO VOICE NEEDS. PT VOICE NO PAIN OR DISCOMFORT AT PRESENT. PT ACCEPTED HS MEDICATION WITHOUT COMPLICATION. PT REQUIRES ASSISTANCE WITH ADLS AND TRANSFEREING. NO ACUTE DISTRESS NOTED
[2021-09-22 08:39] VITALS: BP 133/59; TEMP 98.4
--- NOTE | 2021-09-22 13:32 | NUR ---
SPOKE WITH ANDREZ AT DR. RDZ OFFICE CONCERNING PT'S DRESSING TO LLE. REC'D ORDERS TO UNDRESS WOUND AND TAKE PICTURE AND SEND TO DR. DOW. INFORMED PT AND SPOUSE. PICTURE OBTAINED AND SENT TO DR. DOW. ANDREZ GIVES ORDERS TO CLEANSE AND REDRESS WOUND FOR NOW AND SHE WILL CALL ME BACK WITH ANY FURTHER ORDERS. DAILY VÁZQUEZ
[2021-09-22 20:00] VITALS: BP 123/55; TEMP 98.1
--- NOTE | 2021-09-23 05:46 | NUR ---
PT IN BED RESTING QUITELY EYES CLOSED RESPIRATIONS EVEN AND UNLABORED. PT REQUIRES ASSISTANCE WITH ADLS, PT ACCEPTED HS MEDICATION WITHOUT COMPLICATION. PT ABLE TO VOICE NEEDS AND WANTS. PT DENIES PAIN. NO ACUTE DISTRESS NOTED.
[2021-09-23 08:00] VITALS: BP 125/55; TEMP 98.4
--- NOTE | 2021-09-23 13:50 | NUR ---
typewriter repairer spoke with patients Fatuma to see which home health agency that she and patient would like to use. She said that she had talked to her insurance company this morning and [facility] was in network with their insurance and really close to their house. Motorized Squad Commanding Officer to contact with patient orders.
--- NOTE | 2021-09-23 15:31 | NUR ---
spoke with [facility] home medical supply and they do not have the DME that is needed by the patient and unsure when they will be able to get it. spoke with patients and told her that [facility] in [place] has a store in [place] and that they are in network with their insurance did she want me to contact them. She said yes and song writer did. They do have needed equipment in [place], walker, and sliding board. Agricultural Equipment Mechanic was told that sliding board was not covered and the cost was thirty-five dollars. Agricultural Equipment Mechanic notified patients of the above.
[2021-09-23 20:00] VITALS: BP 116/54; TEMP 99.1
--- NOTE | 2021-09-23 20:48 | NUR ---
PT AWAKE AND ORIENTED WATCHING TV WITH NO S/S OF DISTRESS NOTED, RESP RATE NONLABORED, URINAL WITHIN PT'S REACH, SKIN WARM AND DRY, NO PROBLEMS NOTED AND DRESSING DRY/INTACT TO L BKA, DENIES ANY PROBLEMS AT THIS TIME, PT TALKATIVE WITH STAFF, WILL MONITOR, RAILS UP, BED IN LOW POSITION, CALL LIGHT IN REACH. GAVE NIGHTLY MEDICATION PT TOOK PO MEDS WITH NO ASSIST, WILL MONITOR.
--- NOTE | 2021-09-23 21:55 | NUR ---
GAVE TYLENOL 500MG PO X 1 DOSE FOR C/O PAIN TO 'BOTH KNEES" THAT IS ON AND OFF RATES PAIN A "7". WILL MONITOR CLOSELY.
--- NOTE | 2021-09-23 22:30 | NUR ---
PT RESTING WITH EYES CLOSED, NO S/S OF PAIN OR DISTRESS NOTED, NO REACTIONS NOTED TO TYLENOL, WILL MONITOR, RAILS UP, BED IN LOW POSITION, CALL LIGHT IN REACH.
--- NOTE | 2021-09-23 23:10 | NUR ---
PT FOUND RESTING IN POSITION OF COMFORT WITH EYES CLOSED, NO S/S OF PAIN OR DISTRESS NOTED, WILL MONITOR, RAILS UP, BED IN LOW POSITION, CALL LIGHT IN REACH.
--- NOTE | 2021-09-24 01:00 | NUR ---
RESTING WITH EYES CLOSED IN BED, NO S/S OF PAIN OR DISTRESS NOTED, WILL MONITOR CLOSELY, RAILS UP, BED IN LOW POSITION, CALL LIGHT AND URINAL WITH IN PT'S REACH.
--- NOTE | 2021-09-24 05:58 | NUR ---
RESTING IN POSITION OF COMFORT IN BED WITH EYES CLOSED, NO S/S OF PAIN OR DISTRESS NOTED, RESP RATE NONLABORED, WILL MONITOR CLOSELY, RAILS UP, BED IN LOW POSITION, CALL LIGHT IN REACH.
--- NOTE | 2021-09-24 09:18 | NUR ---
SAND CONDITIONER IS IN PT'S ROOM FOR MORNING ASSESSMENT AND MEDICATION ADMINISTRATION. PT IS ALERT AND ORIENTED AND LAYING IN THE BED IN THE SUPINE POSITION. PT DENIES ANY PAIN AT THIS TIME AND TAKES MORNING MEDICATIONS WITHOUT ANY DIFFICULTY. PHYSICAL THERAPY IS COMING IN NOW TO WORK WITH PT. WILL CONTINUE TO MONITOR.
--- NOTE | 2021-09-24 09:25 | NUR ---
Assistant Front Office Manager was left a message that patient needed a wheel chair also, radio script writer ordered from [facility] then notified patients . She said that all other equipment had been delivered. Assistant Front Office Manager called [facility] and they said that they will be delivering wheel chair between 10 & 10:30 this morning. Patients also notified radio script writer that they had already been contancted by [facility] and that he will be seen by them on Monday.
--- NOTE | 2021-09-24 09:30 | NUR ---
PT FELL WHILE PERFORMING PHYSICAL THERAPY. PHYSICAL THERAPIST REPORTED TO CERTIFIED MASSAGE THERAPIST THAT PT HAD WALKED AROUND THE ROOM USING THE WALKER. WHEN PT SAT BACK DOWN ON THE BED HE STATED THAT HE WANTED TO WALK AROUND THE ROOM WITH THE WALKER ONE MORE TIME. THE PT GOT UP WITH THE WALKER AND TOOK TWO STEPS FORWARD WHEN HIS RT KNEE BUCKLED AND PT FELL TO THE FLOOR. PHYSICAL THERAPIST HAD A GAIT BELT ON PT DURING FALL AND TRIED TO HOLD PT UP BUT PT FELL ON BKA STUMP. THE STUMP BEGAN TO BLEED. AMBER ALVARADO RN CLEANED THE STUMP AND REWRAPPED IT WITH A PRESSURE DRESSING. PT WAS MEDICATED DURING CLEANING AND REWRAPPING OF THE STUMP WITH PRN DOSE OF NORCO. PT IS SHOWING NO SIGNS OF DISTRESS AT THIS TIME. WILL CONTINUE TO MONITOR.
--- NOTE | 2021-09-24 10:08 | NUR ---
HAS BEEN NOTIFIED OF PT'S FALL. NO NEW ORDERS AT THIS TIME.
--- NOTE | 2021-09-24 10:45 | NUR ---
MACHINE GRINDER UNWRAPPED PT'S STUMP. BLEEDING HAS CEASED AT THIS TIME AND STITCHES HAVE REMAINED INTACT.
--- NOTE | 2021-09-24 11:46 | NUR ---
PT HAS REQUESTED FOR SOFTWARE CONSULTANT TO SEND PICTURES OF STUMP POST FALL TO SURGEON, . SOFTWARE CONSULTANT TOOK PICTURES OF PT'S STUMP WHILE IT WAS UNWRAPPED. SOFTWARE CONSULTANT CONTACTED 'S OFFICE AND RECEIVED A PHONE NUMBER TO SEND THE PICTURES TO. AFTER REVIEWING THE PICTURES 'S OFFICE CONTACTED SOFTWARE CONSULTANT BACK STATING THAT WAS MADE AWARE OF THE INCIDENT AND REVIEWED THE PICTURES AND STATED THAT THERE WILL BE NO NEW ORDERS AT THIS TIME BUT TO JUST REWRAP THE STUMP.
--- NOTE | 2021-09-24 14:24 | NUR ---
PT MOVED FROM RECLINER TO BED VIA SLIDING BOARD. PT REQUIRED SETUP HELP ONLY AND WAS ABLE TO SLIDE HIS BODY ACROSS THE BOARD WITHOUT ANY DIFFICULTY. PT TOLERATED TRANSFER WELL. PT REQUESTED A PAIN PILL AND WAS GIVEN A DOSE OF HIS PRN NORCO. NO DISTRESS IS NOTED AT THIS TIME.
[2021-09-24 19:50] VITALS: BP 116/56; TEMP 97.8
--- NOTE | 2021-09-24 23:19 | NUR ---
PT IN BED RESTING WITHG EYES CLOSED. RESP EVEN AND UNLABORED. ACCEPTE HS MEDS WITH NO COMPLAINTS. DENIES PAIN. EDUCATED PT ON FLUID RESTRICTIONS. NO ACUTE DISTRESS . CALL LIGHT IN REACH.
[2021-09-25 08:00] VITALS: BP 117/55; TEMP 98.1
--- NOTE | 2021-09-25 09:47 | NUR ---
UNIT RECEPTIONIST HAS CONTACTED PT'S ABOUT DISCHARGE. STATED THAT THE VEHICLE THAT SHE IS GOING TO PICK HIM UP IN HAS NOT ARRIVED YET SO THEY MAY NOT BE TO [facility] UNTIL AROUND 1200. UNIT RECEPTIONIST UPDATED PT ON CONVERSATION WITH PT'S .
--- NOTE | 2021-09-25 10:57 | NUR ---
Patient sitting up in bed, alert and oriented X 3, talking pleasant, no complaints of pain. Skin color normal, warm and dry. Respirations non-labored, breath sounds clear bilateral. No ectopic heartbeats noted. Abdomen soft, bowel sounds positive all 4 quadrants. Denies N/V/D. Dressing noted to left BKA, clean and dry. Mild swelling noted to area around left knee, patient denies pain or tenderness to this area. Right lower leg noted to have shiny, scaly skin with skin discoloration. Positive pedal pulsed to right foot. Remimded patient he was scheduled for discharge today and he was very positive about this. Instructed patient to call for assistance as needed.
--- NOTE | 2021-09-25 13:00 | NUR ---
PATIENT IS BEING DISCHARGED TO HOME CARE WITH , DISCHARGE INSTRUCTIONS GIVEN FOR MEDICATIONS, FOLLOW-UP APPOINTMENTS, SAFETY INSTRUCTIONS. PATIENT TAKEN TO CAR VIA WHEELCHAIR AND TRANSFERRED EASILY BY SLIDE BOARD INTO VEHICLE. PATIENT VERBALIZED UNDERSTANDING TO ALL DISCHARGE INSTRUCTIONS.
== END 2021-09-25 13:55 | disposition home or self-care (01) | DRG 559 ==
LOC: SWING 10:52 → MED/SURG 11:44
PROVIDERS: Internal Medicine Nephrology; ADMIT Internal Medicine Endocrinology, Diabetes & Metabolism; ATTEND Internal Medicine Endocrinology, Diabetes & Metabolism
DX: Z47.81 Encounter for orthopedic aftercare following surgical amputation (principal); Z89.512 Acquired absence of left leg below knee; M62.81 Muscle weakness (generalized); Z74.1 Need for assistance with personal care; R26.81 Unsteadiness on feet; R53.81 Other malaise; N19 Unspecified kidney failure; E87.5 Hyperkalemia; I48.91 Unspecified atrial fibrillation; D50.9 Iron deficiency anemia, unspecified; I21.4 Non-ST elevation (NSTEMI) myocardial infarction; I12.9 Hypertensive chronic kidney disease with stage 1 through stage 4 chronic kidney disease, or unspecified chronic kidney disease; E87.1 Hypo-osmolality and hyponatremia; E66.9 Obesity, unspecified; G62.9 Polyneuropathy, unspecified; I50.9 Heart failure, unspecified; R60.1 Generalized edema
CPT/HCPCS: 36415; 80048; 80053; 80074; 81000; 82040; 82043; 82550; 82570; 82652; 83516; 83735; 83970; 84100; 84132; 84155; 84165; 84166; 84484; 85027; 85730; 86038; 86060; 86160; 86255; 86592; 87081; 87535; 93005; 94760; G0432; J1644; J1940; J3475; P9047